=== PATIENT | female | born 1990 | race American Indian/Alaskan Native ===

== ENCOUNTER 2021-05-15 12:31 | Outpatient (CLI) | payer OTHER, MEDICAID ==
[2021-05-15] MEDS ORDERED: LACTATED RINGERS 1,000 ML IV ONE (13:00)
[2021-05-15 14:06] VITALS: BP 120/66
== END 2021-05-15 14:15 | disposition home or self-care (01) ==
LOC: TRG 12:31 → APU 12:32 → TRG 14:15
PROVIDERS: ATTEND Obstetrics & Gynecology
DX: Z34.93 Encounter for supervision of normal pregnancy, unspecified, third trimester (principal); Z3A.37 37 weeks gestation of pregnancy
CPT/HCPCS: 59025

== ENCOUNTER 2021-06-04 01:05 | Outpatient (CLI) | payer OTHER, MEDICAID ==
[2021-06-04 01:47] VITALS: BP 119/59
--- NOTE | 2021-06-04 07:21 | Ultrasound Report ---
Limited ultrasound obstetrics Biophysical profile INDICATION: well-being FINDINGS: Single live intrauterine in cephalic position. LUIS measures 7.2 cm. heart r ate 129. Biophysical profile 8 out of 8. IMPRESSION: Normal biophysical profile. Single live intrauterine . LUIS measures 7.2 cm Signer Name: Orlin Holland MD Signed: 06/04/2021 7:16 AM Workstation Name: [id number]
== END 2021-06-04 09:52 | disposition home or self-care (01) ==
LOC: TRG 01:05 → APU 01:15 → TRG 09:52
PROVIDERS: ATTEND Obstetrics & Gynecology
DX: Z34.93 Encounter for supervision of normal pregnancy, unspecified, third trimester (principal); Z3A.40 40 weeks gestation of pregnancy
CPT/HCPCS: 76815; 76819

== ENCOUNTER 2021-06-07 16:14 | Outpatient (CLI) | payer OTHER, MEDICAID ==
[2021-06-07 17:09] VITALS: BP 112/64
[2021-06-07] MEDS ORDERED: LACTATED RINGERS 500 ML IV ONE (17:13)
[2021-06-07] MEDS ORDERED: ACETAMINOPHEN W/CODEINE 300-30 MG TAB PO ONE (19:29)
[2021-06-07] MEDS ORDERED: hydrOXYzine PAMOATE 25 MG CAP PO ONE (19:31)
--- NOTE | 2021-06-07 20:13 | Ultrasound Report ---
ULTRASOUND OBSTETRIC LIMITED ULTRASOUND BIOPHYSICAL PROFILE INDICATION / CLINICAL INFORMATION: f/u fall. COMPARISON: None available. FINDINGS: BREATHING MOVEMENT = 2 GROSS BODY MOVEMENT = 2 TONE = 2 QUALITATIVE AMNIOTIC FLUID VOLUME = 2 TOTAL BIOPHYSICAL SCORE = 8/8 AMNIOTIC FLUID INDEX (cm) = 11.8 PRESENTATION: Cephalic. HEART RATE (beats per minute): 154 ADDITIONAL FINDINGS: None. IMPRESSION: 1. Biophysical Score = 8/8 Signer Name: Anthony Wolfe MD Signed: 06/07/2021 8:08 PM Workstation Name: [email or web address]
== END 2021-06-07 21:43 | disposition home or self-care (01) ==
LOC: TRG 16:14 → APU 16:15 → TRG 21:43
PROVIDERS: ATTEND Obstetrics & Gynecology
DX: Z34.93 Encounter for supervision of normal pregnancy, unspecified, third trimester (principal); Z3A.40 40 weeks gestation of pregnancy
CPT/HCPCS: 59025; 76815; 76819; Q0177; J3490